=== PATIENT | female | born 1950 | race American Indian/Alaskan Native ===

== ENCOUNTER 2016-07-26 07:38 | Outpatient (CLI) | payer MEDICARE ==
--- NOTE | 2016-07-26 09:26 | XRay Report ---
RIGHT HIP RADIOGRAPHS INDICATION: Right hip pain. COMPARISON: None similar. FINDINGS: AP pelvis and a frog-leg projection of the right hip demonstrate intact hip and SI joints bilaterally. Small pelvic phleboliths. Nonobstructive bowel gas pattern. Extensive lower lumbar postsurgical bone grafting and fusion hardware partially imaged. CONCLUSION: No acute right hip radiographic abnormality with extensive lower lumbar postsurgical changes noted, as described. Thank you for the opportunity to participate in this patient's care.
--- NOTE | 2016-07-27 09:42 | Mammography Report ---
BILATERAL MAMMOGRAM with CAD: HISTORY: Cancer screening. Comparison study is dated April 28, 2015. FINDINGS: There are scattered fibroglandular densities (approximately 25%-50% glandular). No mass, distortion, suspicious calcification, or skin change is seen. IMPRESSION: Negative mammogram. There is no mammographic evidence of malignancy. RECOMMENDATION: Follow-up per ACS guidelines. BI-RADS CATEGORY: 1 = Negative ACR BI-RADS MAMMOGRAPHIC CODES: 0 = Needs additional imaging evaluation; 1 = Negative; 2 = Benign; 3 = Probably benign; 4 = Suspicious; 5 = Malignant; 6 = Known biopsy-proven malignancy COMMENT: 1. Dense breast tissue, i.e., adenosis, fibrocystic changes, etc., may obscure an underlying neoplasm. 2. Approximately 10% of cancers are not detected with mammography. 3. A negative mammography report should not delay biopsy if a clinically suspicious mass is present. COMMENT: Patient follow-up letters are generated in [employer].
== END 2016-07-26 07:39 | disposition home or self-care (01) ==
LOC: MAMMO 07:38
PROVIDERS: ATTEND Internal Medicine
DX: Z12.31 Encounter for screening mammogram for malignant neoplasm of breast (principal); I87.8 Other specified disorders of veins
CPT/HCPCS: 73502; G0202; 77067